=== PATIENT | male | born 1995 | race Caucasian/White ===

== ENCOUNTER 2016-12-14 06:37 | Emergency (ER) | payer OTHER ==
[2016-12-14 07:50] LABS: BASO % 0.5 % (0.0-1.0); EOS # 0.2 K/mm3 (0.0-0.50); EOS % 4.8 % (0.0-3.0); LARGE UNSTAINED CELL # 0.2 K/mm3 (0.0-0.4); LARGE UNSTAINED CELL % 3.7 % (0.0-4.0); LYMPH # 1.7 K/mm3 (1.5-6.5); LYMPH % 36.3 % (24.0-44.0); MEAN CORPUSCULAR HEMOGLOBIN 32.2 pg (27.0-33.0); MEAN CORPUSCULAR HGB CONC 34.1 g/dl (32.0-36.5); MEAN CORPUSCULAR VOLUME 94.6 fl (80.0-96.0); MONO # 0.4 K/mm3 (0.0-0.8); MONO % 7.9 % (0.0-5.0); NEUTROPHILS # 2.2 K/mm3 (1.8-7.7); NEUTROPHILS % 46.8 % (36.0-66.0); PLATELET COUNT, AUTOMATED 212 k/mm3 (150-450); RED CELL DISTRIBUTION WIDTH 12.6 % (11.5-14.5); WHITE BLOOD COUNT 4.8 K/mm3 (4.0-10.0)
[2016-12-14 08:11] LABS: ALBUMIN/GLOBULIN RATIO 1.33 (1.00-1.93); ALKALINE PHOSPHATASE 116 U/L (45-117); ALT/SGPT 27 U/L (12-78); AMYLASE 41 U/L (25-115); ANION GAP 6 MEQ/L (8-16); AST/SGOT 16 U/L (15-37); BILIRUBIN,DIRECT 0.3 MG/DL (0.0-0.2); BILIRUBIN,TOTAL 1.3 MG/DL (0.2-1.0); BLOOD UREA NITROGEN 7 MG/DL (7-18); CALCIUM LEVEL 8.5 MG/DL (8.5-10.1); CARBON DIOXIDE LEVEL 30 MEQ/L (21-32); CHLORIDE LEVEL 105 MEQ/L (98-107); CREATININE FOR GFR 1.01 MG/DL (0.70-1.30); GLOMERULAR FILTRATION RATE > 60.0 (>60); GLUCOSE, FASTING 98 MG/DL (70-105); POTASSIUM SERUM 4.1 MEQ/L (3.5-5.1); SODIUM LEVEL 141 MEQ/L (136-145)
--- NOTE | 2016-12-14 09:14 | REP ---
KUB ABDOMEN AND PELVIS: KUB film of the abdomen and pelvis is performed. There is no compelling evidence for small bowel obstruction. A single mildly dilated small bowel loop is seen in the left upper quadrant. There appears to be a small metallic BB on the skin along the left flank. Alternatively, this could be subcutaneous. IMPRESSION: No evidence of bowel obstruction. Signed by Everton Benavides MD 12/14/2016 04:54 P
--- NOTE | 2016-12-14 09:48 | REP ---
RIGHT LOWER QUADRANT ULTRASOUND: Limited right lower quadrant ultrasound performed to evaluate for possible appendicitis. The appendix could not be visualized. Trace free fluid is seen. Lymph node is seen in the right lower quadrant with a short axis dimension of 5 mm. No gross fluid collection is seen. IMPRESSION: Appendix could not be visualized. I cannot rule out appendicitis. Signed by Evertno Benavides MD 12/14/2016 04:55 P
[2016-12-14] MEDS ORDERED: MORPHINE 4 MG/ML 1ML SYRINGE As Ordered ONE (09:51)
[2016-12-14] MEDS ORDERED: GASTROGRAFIN SOLUTION 30ML (Q9963) As Ordered ONE (09:51)
[2016-12-14] MEDS ORDERED: ISOVUE-370 76% 100ML VIAL (Q9967) As Ordered ONE (11:24)
--- NOTE | 2016-12-14 12:15 | REP ---
CT ABDOMEN AND PELVIS WITH IV CONTRAST: TECHNIQUE: Axial contrast enhanced images from the lung bases to the pubic symphysis using 100 mL Isovue 370 intravenous contrast material with multiplanar reformations. The visualized lung bases are clear. The liver, gallbladder, spleen, adrenals, pancreas and kidneys unremarkable in appearance. There is no abdominal aortic aneurysm. There is no adenopathy. There is no free air or free fluid. There is no bowel wall thickening. There is no evidence of appendicitis. There is no pelvic mass. Urinary bladder is mildly distended and grossly unremarkable. There is no anterior abdominal wall defect. IMPRESSION: Negative CT abdomen and pelvis with IV contrast. No evidence for appendicitis. No free air or free fluid. Signed by Everton Benavides MD 12/14/2016 04:58 P
--- NOTE | 2016-12-14 12:26 | EDDOCDS ---
Nurse's Notes [facility] Name: Julio César Mock Age: 21 yrs Sex: Male : 1995 Arrival Date: 12/14/2016 Time: 06:37 Bed I4 / M4 Private MD: Diagnosis: Lower abdominal pain, unspecified Presentation: 12/14 06:42 Presenting complaint: Patient states: right lower quadrant pain since last night kc3 non-radiating. Pt denies n/v. Pt reports hx of inflamed appendix and reports "they just wont take it out.". Acute neurological deficits are not present. Mechanism of Injury: No Mechanism of Injury. Adult Sepsis Screening: The patient does not have new or worsening altered mentation. Patient's respiratory rate is less than 22. Systolic blood pressure is greater than 100. Patient has a qSOFA score of 0- Negative Sepsis Screen. Suicide/Homicide risk assessment- the patient denies having any suicidal and/or homicidal ideations and does not present with any other emotional, behavioral or mental health complaints. Status: The patient is an active duty director of therapy services. Transition of care: patient was not received from another setting of care. 06:42 Acuity: JEWELS Level 3 kc3 06:42 Method Of Arrival: Walkin/Carried/Asstd kc3 Triage Assessment: 06:44 General: Appears in no apparent distress, comfortable. Pain: Location: right lower kc3 quadrant Pain currently is 3 out of 10 on a pain scale. HIV screening NA for this visit Offered previously. GI: Reports lower abdominal pain, Denies nausea, vomiting. Musculoskeletal: Circulation, motion, and sensation intact. Historical: - Allergies: no known allergies; - Home Meds: 1. Tylenol 325 mg Oral tab 2 tabs every 4 hours as needed - PMHx: none; - PSHx: none; - Social history: Smoking status: Patient states was never smoker of tobacco. No barriers to communication noted, The patient speaks fluent Jamaican, Speaks appropriately for age. - Family history: Not pertinent. - : The pt / caregiver states he / she is not on anticoagulants. Home medication list is obtained from the patient. - Exposure Risk Screening:: None identified. Screenin:39 Screening information is obtained from the patient. Primary language is Jamaican. Fall jam1 risk: No risks identified. Assistance ADL's: requires no assistance with activities of daily living. Abuse/DV Screen: The patient / caregiver reports he/she is: not in a situation that causes fear, pain or injury. Nutritional screening: No deficits noted. Exposure Risk Screening: None identified. Advance Directives: Currently, there is no health care proxy. There is no active DNR order. There is no living will. 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 Advance directive information has not previously been placed in an [facility] medical record. Further advance directive information is declined. home support is adequate. Assessment: 07:38 General: Appears in no apparent distress, well developed, well nourished, well groomed, dls Behavior is cooperative. Neurological: No deficits noted. EENT: No deficits noted. Cardiovascular: No deficits noted. Respiratory: No deficits noted. GI: Abdomen is flat, Bowel sounds present X 4 quads. Abd is soft X 4 quads Reports lower abdominal pain. : No deficits noted. Derm: No deficits noted. Musculoskeletal: No deficits noted. 08:30 General: Pt resting quietly on stretcher awaiting test results.. dls 10:07 General: Pt medicated IV for abdominal pain 4/10 also drinking contrast for CT.. dls 11:38 General: Pt to CT via stretcher and returned to room IV site remains clear and patent.. [facility] Vital Signs: 06:41 BP 127 / 71; Pulse 54; Resp 18; Temp 97.2(O); Pulse Ox 99% on R/A; Weight 68.04 kg; kc3 Height 5 ft. 6 in. (167.64 cm); Pain 3/10; 10:19 BP 121 / 67; Pulse 54; Resp 18; Temp 96.7; Pulse Ox 99% ; Pain 3/10; jam1 10:20 BP 113 / 57; Pulse 77; Resp 16; jmk 12:24 BP 115 / 58; Pulse 82; Resp 16; Temp 98.0(T); jmk 06:41 Body Mass Index 24.21 (68.04 kg, 167.64 cm) [facility] Vitals: 06:41 Log In Time: December 14, 2016 at 06:41. [facility] ED Course: 06:38 Patient visited by Chrissy Bianchi, Reg. hs2 06:38 Patient moved to Waiting hs2 06:43 Triage Initiated 3 06:48 Patient moved to [facility] Wait kc3 07:07 Patient moved to I4 / M4 dls 07:11 Aki Coley PA-C is PHCP. ar2 07:11 Leo Rebollar MD is Attending Physician. ar2 07:14 Patient visited by Aki Coley PA-C. ar2 07:37 Amylase Sent. dls 07:37 Basic Metabolic Profile Sent. dls 07:37 CBC with Diff Sent. dls 07:37 Lipase Sent. dls 07:37 Liver Profile Sent. dls 07:39 Pt greeted and oriented to ED. Patient advised of names of staff involved in care, jam1 location of call baeza, wait times and NPO status. Patient has correct armband on for positive identification. Placed in gown. Bed in low position. Call light in reach. Side rails up X 1. Door closed. 07:39 Inserted saline lock: 20 gauge in right antecubital area and blood collected. The dls patient tolerated the procedure well. No procedures done that require assistance. Labs drawn. (by ED staff). 08:16 [facility] Payment Agreement was scanned into [employer] and attached to record. mm15 08:25 Patient visited by Diana Reyes RN. dls 09:35 KUB Returned. EDMS 09:57 Patient has correct armband on for positive identification. Bed in low position. Call jam1 light in reach. Side rails up X 1. Door closed. 10:04 Pelvis, limited US Returned. EDMS 10:20 Patient visited by Diana Reyes, [place]. dls 11:24 Patient visited by Diana Reyes, [place]. dls 11:35 Patient visited by Rose Mary Spear, IRIS. jam1 12:04 Teresita Moran [facility] is Referral Physician. ar2 12:24 The patient / caregiver is instructed regarding the plan of care and ED course. jmk 12:24 Discontinued lock intact, bleeding controlled, pressure dressing applied, No jmk redness/swelling at site. Administered Medications: 09:56 Drug: morphine 4 mg [morphine 4 mg/mL intravenous cartridge (1 mL)] Route: IVP; Site: dls right antecubital; 10:05 Drug: Diatrizoate Meglumine & Sodium 10 ml [diatrizoate meglumine and diat.sodium 66 dls %-10 % oral solution (10 mL)] Route: PO; 10:28 Drug: Diatrizoate Meglumine & Sodium 10 ml [diatrizoate meglumine and diat.sodium 66 dls %-10 % oral solution (10 mL)] Route: PO; Order Results: Lab Order: Amylase; SPEC'M 12/14/16 07:33 Test: AMYLASE; Value: 41; Range: 25-115; Units: U/L; Status: F Lab Order: Basic Metabolic Profile; SPEC'12/14/16 07:33 Test: GLUCOSE, FASTING; Value: 98; Range: 70-105; Units: MG/DL; Status: F Test: BLOOD UREA NITROGEN; Value: 7; Range: 7-18; Units: MG/DL; Status: F Test: CREATININE FOR GFR; Value: 1.01; Range: 0.70-1.30; Units: MG/DL; Status: F Test: GLOMERULAR FILTRATION RATE; Value: > 60.0; Range: >60; Status: F Test: SODIUM LEVEL; Value: 141; Range: 136-145; Units: MEQ/L; Status: F Test: POTASSIUM SERUM; Value: 4.1; Range: 3.5-5.1; Units: MEQ/L; Status: F Test: CHLORIDE LEVEL; Value: 105; Range: 98-107; Units: MEQ/L; Status: F Test: CARBON DIOXIDE LEVEL; Value: 30; Range: 21-32; Units: MEQ/L; Status: F Test: ANION GAP; Value: 6; Range: 8-16; Abnormal: Below low normal; Units: MEQ/L; Status: F Test: CALCIUM LEVEL; Value: 8.5; Range: 8.5-10.1; Units: MG/DL; Status: F Test Note: ; Units are mL/min/1.73 m2 Chronic Kidney Disease Staging per NKF: Stage I & II GFR >=60 Normal to Mildly Decreased Stage III GFR 30-59 Moderately Decreased Stage IV GFR 15-29 Severely Decreased Stage V GFR <15 Very Little GFR Left ESRD GFR <15 on HOCKEY INSTRUCTOR Lab Order: CBC with Diff; SPEC'12/14/16 07:33 Test: WHITE BLOOD COUNT; Value: 4.8; Range: 4.0-10.0; Units: K/mm3; Status: F Test: RED BLOOD COUNT; Value: 4.78; Range: 4.30-6.10; Units: M/mm3; Status: F Test: HEMOGLOBIN; Value: 15.4; Range: 14.0-18.0; Units: g/dl; Status: F Test: HEMATOCRIT; Value: 45.3; Range: 42.0-52.0; Units: %; Status: F Test: MEAN CORPUSCULAR VOLUME; Value: 94.6; Range: 80.0-96.0; Units: fl; Status: F Test: MEAN CORPUSCULAR HEMOGLOBIN; Value: 32.2; Range: 27.0-33.0; Units: pg; Status: F Test: MEAN CORPUSCULAR HGB CONC; Value: 34.1; Range: 32.0-36.5; Units: g/dl; Status: F Test: RED CELL DISTRIBUTION WIDTH; Value: 12.6; Range: 11.5-14.5; Units: %; Status: F Test: PLATELET COUNT, AUTOMATED; Value: 212; Range: 150-450; Units: k/mm3; Status: F Test: NEUTROPHILS %; Value: 46.8; Range: 36.0-66.0; Units: %; Status: F Test: LYMPH %; Value: 36.3; Range: 24.0-44.0; Units: %; Status: F Test: MONO %; Value: 7.9; Range: 0.0-5.0; Abnormal: Above high normal; Units: %; Status: F Test: EOS %; Value: 4.8; Range: 0.0-3.0; Abnormal: Above high normal; Units: %; Status: F Test: BASO %; Value: 0.5; Range: 0.0-1.0; Units: %; Status: F Test: LARGE UNSTAINED CELL %; Value: 3.7; Range: 0.0-4.0; Units: %; Status: F Test: NEUTROPHILS #; Value: 2.2; Range: 1.8-7.7; Units: K/mm3; Status: F Test: LYMPH #; Value: 1.7; Range: 1.5-6.5; Units: K/mm3; Status: F Test: MONO #; Value: 0.4; Range: 0.0-0.8; Units: K/mm3; Status: F Test: EOS #; Value: 0.2; Range: 0.0-0.50; Units: K/mm3; Status: F Test: BASO #; Value: 0.0; Range: 0.0-0.2; Units: K/mm3; Status: F Test: LARGE UNSTAINED CELL #; Value: 0.2; Range: 0.0-0.4; Units: K/mm3; Status: F Lab Order: Lipase; SPEC'M 12/14/16 07:33 Test: LIPASE; Value: 90; Range: 73-393; Units: U/L; Status: F Lab Order: Liver Profile; SPEC'M 12/14/16 07:33 Test: AST/SGOT; Value: 16; Range: 15-37; Units: U/L; Status: F Test: ALT/SGPT; Value: 27; Range: 12-78; Units: U/L; Status: F Test: ALKALINE PHOSPHATASE; Value: 116; Range: 45-117; Units: U/L; Status: F Test: BILIRUBIN,TOTAL; Value: 1.3; Range: 0.2-1.0; Abnormal: Above high normal; Units: MG/DL; Status: F Test: BILIRUBIN,DIRECT; Value: 0.3; Range: 0.0-0.2; Abnormal: Above high normal; Units: MG/DL; Status: F Test: TOTAL PROTEIN; Value: 7.0; Range: 6.4-8.2; Units: GM/DL; Status: F Test: ALBUMIN; Value: 4.0; Range: 3.2-5.2; Units: GM/DL; Status: F Test: ALBUMIN/GLOBULIN RATIO; Value: 1.33; Range: 1.00-1.93; Status: F Radiology Order: KUB Test: KUB REASON FOR EXAMINATION: RLQ pain; KUB ABDOMEN AND PELVIS:; ; KUB film of the abdomen and pelvis is performed. There is no compelling evidence; for small bowel obstruction. A single mildly dilated small bowel loop is seen in; the left upper quadrant. There appears to be a small metallic BB on the skin; along the left flank. Alternatively, this could be subcutaneous.; ; IMPRESSION:; No evidence of bowel obstruction.; ; Unreviewed; Radiology Order: Pelvis, limited US Test: Pelvis, limited US REASON FOR EXAMINATION: RLQ pain;Appendicitis/RLQ Pain; RIGHT LOWER QUADRANT ULTRASOUND:; ; Limited right lower quadrant ultrasound performed to evaluate for possible; appendicitis. The appendix could not be visualized. Trace free fluid is seen.; Lymph node is seen in the right lower quadrant with a short axis dimension of 5; mm. No gross fluid collection is seen.; ; IMPRESSION:; Appendix could not be visualized. I cannot rule out appendicitis.; ; Unreviewed; Outcome: 12:05 Discharge ordered by Provider. ar2 12:23 Discharge Assessment: Patient awake, alert and oriented x 3. No cognitive and/or jmk functional deficits noted. Patient verbalized understanding of disposition instructions. patient administered narcotics - yes. Pt provided with safe discharge. The following High Risk Discharge criteria are identified: None. Discharged to home ambulatory. Condition: good. Discharge instructions given to patient, Instructed on discharge instructions, follow up and referral plans. medication usage, no driving heavy equipment, Demonstrated understanding of instructions, medications, Pt was receptive of discharge instructions/ teaching. Prescriptions given X 1. CT Study completed. Property :Personal belongings accompany Pt. 12:26 Patient left the ED. maurilio Signatures: Dispatcher [employer] EDMS Augustin Yusuf,RN RN Diana Lua RN RN dls Rose Mary Spear, HOT BILLET SHEAR OPERATOR HOT BILLET SHEAR OPERATOR jam1 Aki Coley PA-C PA-C ar2 Gabby Sanders mm15 Silva BlackRN RN kc3 Chrissy Bianchi, Reg Reg hs2 Corrections: (The following items were deleted from the chart) 10:07 10:01 General: Pt resting quietly. dls dls MTDD
--- NOTE | 2016-12-14 12:26 | EDDOCDS ---
Physician Documentation [facility] Name: Julio César Mock Age: 21 yrs Sex: Male : 1995 Arrival Date: 12/14/2016 Time: 06:37 Bed I4 / M4 Private MD: Disposition: 12/14/16 12:05 Discharged to Home/Self Care. Impression: Lower abdominal pain, unspecified. - Condition is Stable. - Discharge Instructions: Abdominal Pain, Adult. - Prescriptions for Miralax 17 gram/dose - take 17 gram by ORAL route once daily As needed dilute in 8 ounces of water or juice; 1 bottle. - Medication Reconciliation, Local Pharmacy Hours form. - Follow up: Teresita Moran [facility]; When: Call to arrange an appointment; Reason: Recheck today's complaints. - Problem is new. - Symptoms have improved. Historical: - Allergies: no known allergies; - Home Meds: 1. Tylenol 325 mg Oral tab 2 tabs every 4 hours as needed - PMHx: none; - PSHx: none; - Social history: Smoking status: Patient states was never smoker of tobacco. No barriers to communication noted, The patient speaks fluent Kenyan, Speaks appropriately for age. - Family history: Not pertinent. - : The pt / caregiver states he / she is not on anticoagulants. Home medication list is obtained from the patient. - Exposure Risk Screening:: None identified. Vital Signs: 12/14 06:41 BP 127 / 71; Pulse 54; Resp 18; Temp 97.2(O); Pulse Ox 99% on R/A; Weight 68.04 kg / kc3 150 lbs; Height 5 ft. 6 in. (167.64 cm); Pain 3/10; 10:19 BP 121 / 67; Pulse 54; Resp 18; Temp 96.7; Pulse Ox 99% ; Pain 3/10; jam1 10:20 BP 113 / 57; Pulse 77; Resp 16; jmk 12:24 BP 115 / 58; Pulse 82; Resp 16; Temp 98.0(T); jmk 06:41 Body Mass Index 24.21 (68.04 kg, 167.64 cm) kc3 MDM: 07:20 IV Saline Lock ordered. ar2 07:20 Undress patient appropriately for examination ordered. ar2 07:22 Amylase Ordered. EDMS 07:22 Basic Metabolic Profile Ordered. EDMS 07:22 CBC with Diff Ordered. EDMS 07:22 Lipase Ordered. EDMS 07:22 Liver Profile Ordered. EDMS 07:23 NOTHING BY MOUTH+DIET ordered. EDMS 07:52 Financial registration complete. mm15 08:16 [facility] Payment Agreement was scanned into [employer] and attached to record. mm15 08:16 Basic Metabolic Profile Reviewed. ar2 08:16 CBC with Diff Reviewed. ar2 08:16 Liver Profile Reviewed. ar2 08:16 Amylase Reviewed. ar2 08:16 Lipase Reviewed. ar2 08:33 KUB Ordered. EDMS 08:53 Pelvis, limited US Ordered. EDMS 09:48 morphine 4 mg IVP once ordered. ar2 09:48 CT ABD & PELVIS: IV and Oral Contrast Ordered. EDMS 09:57 Diatrizoate Meglumine & Sodium Liquid 10 ml PO once; mix in 290cc of water ordered. dls 09:58 Diatrizoate Meglumine & Sodium Liquid 10 ml PO once; mix in 290cc of water ordered. dls Administered Medications: 09:56 Drug: morphine 4 mg [morphine 4 mg/mL intravenous cartridge (1 mL)] Route: IVP; Site: dls right antecubital; 10:05 Drug: Diatrizoate Meglumine & Sodium 10 ml [diatrizoate meglumine and diat.sodium 66 dls %-10 % oral solution (10 mL)] Route: PO; 10:28 Drug: Diatrizoate Meglumine & Sodium 10 ml [diatrizoate meglumine and diat.sodium 66 dls %-10 % oral solution (10 mL)] Route: PO; Signatures: Dispatcher [employer] EDMS Augustin Yusuf,RN RN Diana Lua RN RN dls Aki Coley PA-Annabel PAShay ar2 Gabby Sanders mm15 Silva Black,RN RN kc3 The chart was reviewed and I authenticate all verbal orders and agree with the evaluation and treatment provided.Corrections: (The following items were deleted from the chart) 08:53 08:26 Abdomen, limited+US ordered. EDMS EDMS Attachments: 08:16 [facility] [place] mm15 MTDD
--- NOTE | 2016-12-16 13:27 | EDDOCDS ---
Physician Documentation [facility] Name: Julio César Mock Age: 21 yrs Sex: Male : 1995 Arrival Date: 12/14/2016 Time: 06:37 Bed I4 / M4 Private MD: Disposition: 12/14/16 12:05 Discharged to Home/Self Care. Impression: Lower abdominal pain, unspecified. - Condition is Stable. - Discharge Instructions: Abdominal Pain, Adult. - Prescriptions for Miralax 17 gram/dose - take 17 gram by ORAL route once daily As needed dilute in 8 ounces of water or juice; 1 bottle. - Medication Reconciliation, Local Pharmacy Hours form. - Follow up: Teresita Moran [facility]; When: Call to arrange an appointment; Reason: Recheck today's complaints. - Problem is new. - Symptoms have improved. Historical: - Allergies: no known allergies; - Home Meds: 1. Tylenol 325 mg Oral tab 2 tabs every 4 hours as needed - PMHx: none; - PSHx: none; - Social history: Smoking status: Patient states was never smoker of tobacco. No barriers to communication noted, The patient speaks fluent Brazilian, Speaks appropriately for age. - Family history: Not pertinent. - : The pt / caregiver states he / she is not on anticoagulants. Home medication list is obtained from the patient. - Exposure Risk Screening:: None identified. Vital Signs: 12/14 06:41 BP 127 / 71; Pulse 54; Resp 18; Temp 97.2(O); Pulse Ox 99% on R/A; Weight 68.04 kg / kc3 150 lbs; Height 5 ft. 6 in. (167.64 cm); Pain 3/10; 10:19 BP 121 / 67; Pulse 54; Resp 18; Temp 96.7; Pulse Ox 99% ; Pain 3/10; jam1 10:20 BP 113 / 57; Pulse 77; Resp 16; jmk 12:24 BP 115 / 58; Pulse 82; Resp 16; Temp 98.0(T); jmk 06:41 Body Mass Index 24.21 (68.04 kg, 167.64 cm) kc3 MDM: 07:20 IV Saline Lock ordered. ar2 07:20 Undress patient appropriately for examination ordered. ar2 07:22 Amylase Ordered. EDMS 07:22 Basic Metabolic Profile Ordered. EDMS 07:22 CBC with Diff Ordered. EDMS 07:22 Lipase Ordered. EDMS 07:22 Liver Profile Ordered. EDMS 07:23 NOTHING BY MOUTH+DIET ordered. EDMS 07:52 Financial registration complete. mm15 08:16 [facility] Payment Agreement was scanned into [employer] and attached to record. mm15 08:16 Basic Metabolic Profile Reviewed. ar2 08:16 CBC with Diff Reviewed. ar2 08:16 Liver Profile Reviewed. ar2 08:16 Amylase Reviewed. ar2 08:16 Lipase Reviewed. ar2 08:33 KUB Ordered. EDMS 08:53 Pelvis, limited US Ordered. EDMS 09:48 morphine 4 mg IVP once ordered. ar2 09:48 CT ABD & PELVIS: IV and Oral Contrast Ordered. EDMS 09:57 Diatrizoate Meglumine & Sodium Liquid 10 ml PO once; mix in 290cc of water ordered. dls 09:58 Diatrizoate Meglumine & Sodium Liquid 10 ml PO once; mix in 290cc of water ordered. dls Administered Medications: 09:56 Drug: morphine 4 mg [morphine 4 mg/mL intravenous cartridge (1 mL)] Route: IVP; Site: dls right antecubital; 10:05 Drug: Diatrizoate Meglumine & Sodium 10 ml [diatrizoate meglumine and diat.sodium 66 dls %-10 % oral solution (10 mL)] Route: PO; 10:28 Drug: Diatrizoate Meglumine & Sodium 10 ml [diatrizoate meglumine and diat.sodium 66 dls %-10 % oral solution (10 mL)] Route: PO; Signatures: Dispatcher [employer] EDMS Augustin Yusuf,RN RN Diana Lua RN RN dls Aki Coley PA-Annabel PAShay ar2 Gabby Sanders mm15 Silva Black,RN RN kc3 The chart was reviewed and I authenticate all verbal orders and agree with the evaluation and treatment provided.Corrections: (The following items were deleted from the chart) 08:53 08:26 Abdomen, limited+US ordered. EDMS EDMS Attachments: 08:16 [facility] Payment Agreement mm15 Chart Complete MTDD
--- NOTE | 2016-12-16 13:27 | EDDOCDS ---
Nurse's Notes [facility], [place] Name: Julio César Mock Age: 21 yrs Sex: Male : 1995 Arrival Date: 12/14/2016 Time: 06:37 Bed I4 / M4 Private MD: Diagnosis: Lower abdominal pain, unspecified Presentation: 12/14 06:42 Presenting complaint: Patient states: right lower quadrant pain since last night kc3 non-radiating. Pt denies n/v. Pt reports hx of inflamed appendix and reports "they just wont take it out.". Acute neurological deficits are not present. Mechanism of Injury: No Mechanism of Injury. Adult Sepsis Screening: The patient does not have new or worsening altered mentation. Patient's respiratory rate is less than 22. Systolic blood pressure is greater than 100. Patient has a qSOFA score of 0- Negative Sepsis Screen. Suicide/Homicide risk assessment- the patient denies having any suicidal and/or homicidal ideations and does not present with any other emotional, behavioral or mental health complaints. Status: The patient is an active duty student services coordinator. Transition of care: patient was not received from another setting of care. 06:42 Acuity: JEWELS Level 3 kc3 06:42 Method Of Arrival: Walkin/Carried/Asstd kc3 Triage Assessment: 06:44 General: Appears in no apparent distress, comfortable. Pain: Location: right lower kc3 quadrant Pain currently is 3 out of 10 on a pain scale. HIV screening NA for this visit Offered previously. GI: Reports lower abdominal pain, Denies nausea, vomiting. Musculoskeletal: Circulation, motion, and sensation intact. Historical: - Allergies: no known allergies; - Home Meds: 1. Tylenol 325 mg Oral tab 2 tabs every 4 hours as needed - PMHx: none; - PSHx: none; - Social history: Smoking status: Patient states was never smoker of tobacco. No barriers to communication noted, The patient speaks fluent Cape Verdean, Speaks appropriately for age. - Family history: Not pertinent. - : The pt / caregiver states he / she is not on anticoagulants. Home medication list is obtained from the patient. - Exposure Risk Screening:: None identified. Screenin:39 Screening information is obtained from the patient. Primary language is Cape Verdean. Fall jam1 risk: No risks identified. Assistance ADL's: requires no assistance with activities of daily living. Abuse/DV Screen: The patient / caregiver reports he/she is: not in a situation that causes fear, pain or injury. Nutritional screening: No deficits noted. Exposure Risk Screening: None identified. Advance Directives: Currently, there is no health care proxy. There is no active DNR order. There is no living will. There is no Power of Bulk Cooler Installer. Advance directive information has not previously been placed in an [facility] medical record. Further advance directive information is declined. home support is adequate. Assessment: 07:38 General: Appears in no apparent distress, well developed, well nourished, well groomed, dls Behavior is cooperative. Neurological: No deficits noted. EENT: No deficits noted. Cardiovascular: No deficits noted. Respiratory: No deficits noted. GI: Abdomen is flat, Bowel sounds present X 4 quads. Abd is soft X 4 quads Reports lower abdominal pain. : No deficits noted. Derm: No deficits noted. Musculoskeletal: No deficits noted. 08:30 General: Pt resting quietly on stretcher awaiting test results.. dls 10:07 General: Pt medicated IV for abdominal pain 4/10 also drinking contrast for CT.. dls 11:38 General: Pt to CT via stretcher and returned to room IV site remains clear and patent.. [facility] Vital Signs: 06:41 BP 127 / 71; Pulse 54; Resp 18; Temp 97.2(O); Pulse Ox 99% on R/A; Weight 68.04 kg; kc3 Height 5 ft. 6 in. (167.64 cm); Pain 3/10; 10:19 BP 121 / 67; Pulse 54; Resp 18; Temp 96.7; Pulse Ox 99% ; Pain 3/10; jam1 10:20 BP 113 / 57; Pulse 77; Resp 16; jmk 12:24 BP 115 / 58; Pulse 82; Resp 16; Temp 98.0(T); jmk 06:41 Body Mass Index 24.21 (68.04 kg, 167.64 cm) [facility] Vitals: 06:41 Log In Time: December 14, 2016 at 06:41. [facility] ED Course: 06:38 Patient visited by Chrissy Bianchi, Reg. hs2 06:38 Patient moved to Waiting hs2 06:43 Triage Initiated 3 06:48 Patient moved to [facility] Wait kc3 07:07 Patient moved to I4 / M4 dls 07:11 Aki Coley PA-C is PHCP. ar2 07:11 Leo Rebollar MD is Attending Physician. ar2 07:14 Patient visited by Aki Coley PA-C. ar2 07:37 Amylase Sent. dls 07:37 Basic Metabolic Profile Sent. dls 07:37 CBC with Diff Sent. dls 07:37 Lipase Sent. dls 07:37 Liver Profile Sent. dls 07:39 Pt greeted and oriented to ED. Patient advised of names of staff involved in care, jam1 location of call baeza, wait times and NPO status. Patient has correct armband on for positive identification. Placed in gown. Bed in low position. Call light in reach. Side rails up X 1. Door closed. 07:39 Inserted saline lock: 20 gauge in right antecubital area and blood collected. The dls patient tolerated the procedure well. No procedures done that require assistance. Labs drawn. (by ED staff). 08:16 [facility] Payment Agreement was scanned into [employer] and attached to record. mm15 08:25 Patient visited by Diana Reyes RN. dls 09:35 KUB Returned. EDMS 09:57 Patient has correct armband on for positive identification. Bed in low position. Call jam1 light in reach. Side rails up X 1. Door closed. 10:04 Pelvis, limited US Returned. EDMS 10:20 Patient visited by Diana Reyes, [place]. dls 11:24 Patient visited by Diana Reyes, [place]. dls 11:35 Patient visited by Rose Mary Spear, IRIS. jam1 12:04 Teresita Moran [facility] is Referral Physician. ar2 12:24 The patient / caregiver is instructed regarding the plan of care and ED course. jmk 12:24 Discontinued lock intact, bleeding controlled, pressure dressing applied, No jmk redness/swelling at site. 12:40 CT ABD & PELVIS: IV and Oral Contrast Returned. EDMS Administered Medications: 09:56 Drug: morphine 4 mg [morphine 4 mg/mL intravenous cartridge (1 mL)] Route: IVP; Site: dls right antecubital; 10:05 Drug: Diatrizoate Meglumine & Sodium 10 ml [diatrizoate meglumine and diat.sodium 66 dls %-10 % oral solution (10 mL)] Route: PO; 10:28 Drug: Diatrizoate Meglumine & Sodium 10 ml [diatrizoate meglumine and diat.sodium 66 dls %-10 % oral solution (10 mL)] Route: PO; Order Results: Lab Order: Amylase; SPEC'12/14/16 07:33 Test: AMYLASE; Value: 41; Range: 25-115; Units: U/L; Status: F Lab Order: Basic Metabolic Profile; SPEC12/14/16 07:33 Test: GLUCOSE, FASTING; Value: 98; Range: 70-105; Units: MG/DL; Status: F Test: BLOOD UREA NITROGEN; Value: 7; Range: 7-18; Units: MG/DL; Status: F Test: CREATININE FOR GFR; Value: 1.01; Range: 0.70-1.30; Units: MG/DL; Status: F Test: GLOMERULAR FILTRATION RATE; Value: > 60.0; Range: >60; Status: F Test: SODIUM LEVEL; Value: 141; Range: 136-145; Units: MEQ/L; Status: F Test: POTASSIUM SERUM; Value: 4.1; Range: 3.5-5.1; Units: MEQ/L; Status: F Test: CHLORIDE LEVEL; Value: 105; Range: 98-107; Units: MEQ/L; Status: F Test: CARBON DIOXIDE LEVEL; Value: 30; Range: 21-32; Units: MEQ/L; Status: F Test: ANION GAP; Value: 6; Range: 8-16; Abnormal: Below low normal; Units: MEQ/L; Status: F Test: CALCIUM LEVEL; Value: 8.5; Range: 8.5-10.1; Units: MG/DL; Status: F Test Note: ; Units are mL/min/1.73 m2 Chronic Kidney Disease Staging per NKF: Stage I & II GFR >=60 Normal to Mildly Decreased Stage III GFR 30-59 Moderately Decreased Stage IV GFR 15-29 Severely Decreased Stage V GFR <15 Very Little GFR Left ESRD GFR <15 on BAR TACKER Lab Order: CBC with Diff; SPEC12/14/16 07:33 Test: WHITE BLOOD COUNT; Value: 4.8; Range: 4.0-10.0; Units: K/mm3; Status: F Test: RED BLOOD COUNT; Value: 4.78; Range: 4.30-6.10; Units: M/mm3; Status: F Test: HEMOGLOBIN; Value: 15.4; Range: 14.0-18.0; Units: g/dl; Status: F Test: HEMATOCRIT; Value: 45.3; Range: 42.0-52.0; Units: %; Status: F Test: MEAN CORPUSCULAR VOLUME; Value: 94.6; Range: 80.0-96.0; Units: fl; Status: F Test: MEAN CORPUSCULAR HEMOGLOBIN; Value: 32.2; Range: 27.0-33.0; Units: pg; Status: F Test: MEAN CORPUSCULAR HGB CONC; Value: 34.1; Range: 32.0-36.5; Units: g/dl; Status: F Test: RED CELL DISTRIBUTION WIDTH; Value: 12.6; Range: 11.5-14.5; Units: %; Status: F Test: PLATELET COUNT, AUTOMATED; Value: 212; Range: 150-450; Units: k/mm3; Status: F Test: NEUTROPHILS %; Value: 46.8; Range: 36.0-66.0; Units: %; Status: F Test: LYMPH %; Value: 36.3; Range: 24.0-44.0; Units: %; Status: F Test: MONO %; Value: 7.9; Range: 0.0-5.0; Abnormal: Above high normal; Units: %; Status: F Test: EOS %; Value: 4.8; Range: 0.0-3.0; Abnormal: Above high normal; Units: %; Status: F Test: BASO %; Value: 0.5; Range: 0.0-1.0; Units: %; Status: F Test: LARGE UNSTAINED CELL %; Value: 3.7; Range: 0.0-4.0; Units: %; Status: F Test: NEUTROPHILS #; Value: 2.2; Range: 1.8-7.7; Units: K/mm3; Status: F Test: LYMPH #; Value: 1.7; Range: 1.5-6.5; Units: K/mm3; Status: F Test: MONO #; Value: 0.4; Range: 0.0-0.8; Units: K/mm3; Status: F Test: EOS #; Value: 0.2; Range: 0.0-0.50; Units: K/mm3; Status: F Test: BASO #; Value: 0.0; Range: 0.0-0.2; Units: K/mm3; Status: F Test: LARGE UNSTAINED CELL #; Value: 0.2; Range: 0.0-0.4; Units: K/mm3; Status: F Lab Order: Lipase; SPEC'M 12/14/16 07:33 Test: LIPASE; Value: 90; Range: 73-393; Units: U/L; Status: F Lab Order: Liver Profile; SPEC'M 12/14/16 07:33 Test: AST/SGOT; Value: 16; Range: 15-37; Units: U/L; Status: F Test: ALT/SGPT; Value: 27; Range: 12-78; Units: U/L; Status: F Test: ALKALINE PHOSPHATASE; Value: 116; Range: 45-117; Units: U/L; Status: F Test: BILIRUBIN,TOTAL; Value: 1.3; Range: 0.2-1.0; Abnormal: Above high normal; Units: MG/DL; Status: F Test: BILIRUBIN,DIRECT; Value: 0.3; Range: 0.0-0.2; Abnormal: Above high normal; Units: MG/DL; Status: F Test: TOTAL PROTEIN; Value: 7.0; Range: 6.4-8.2; Units: GM/DL; Status: F Test: ALBUMIN; Value: 4.0; Range: 3.2-5.2; Units: GM/DL; Status: F Test: ALBUMIN/GLOBULIN RATIO; Value: 1.33; Range: 1.00-1.93; Status: F Radiology Order: KUB Test: KUB REASON FOR EXAMINATION: RLQ pain; KUB ABDOMEN AND PELVIS:; ; KUB film of the abdomen and pelvis is performed. There is no compelling evidence; for small bowel obstruction. A single mildly dilated small bowel loop is seen in; the left upper quadrant. There appears to be a small metallic BB on the skin; along the left flank. Alternatively, this could be subcutaneous.; ; IMPRESSION:; ; No evidence of bowel obstruction.; ; ; Signed by; Everton Benavides MD 12/14/2016 04:54 P; Radiology Order: Pelvis, limited US Test: Pelvis, limited US REASON FOR EXAMINATION: RLQ pain;Appendicitis/RLQ Pain; RIGHT LOWER QUADRANT ULTRASOUND:; ; Limited right lower quadrant ultrasound performed to evaluate for possible; appendicitis. The appendix could not be visualized. Trace free fluid is seen.; Lymph node is seen in the right lower quadrant with a short axis dimension of 5; mm. No gross fluid collection is seen.; ; IMPRESSION:; ; Appendix could not be visualized. I cannot rule out appendicitis.; ; ; Signed by; Everton Benavides MD 12/14/2016 04:55 P; Radiology Order: CT ABD & PELVIS: IV and Oral Contrast Test: CT ABD & PELVIS: IV and Oral Contrast REASON FOR EXAMINATION: Appendicitis; CT ABDOMEN AND PELVIS WITH IV CONTRAST:; ; TECHNIQUE: Axial contrast enhanced images from the lung bases to the pubic; symphysis using 100 mL Isovue 370 intravenous contrast material with multiplanar; reformations.; ; The visualized lung bases are clear. The liver, gallbladder, spleen, adrenals,; pancreas and kidneys unremarkable in appearance. There is no abdominal aortic; aneurysm. There is no adenopathy. There is no free air or free fluid. There is; no bowel wall thickening. There is no evidence of appendicitis. There is no; pelvic mass. Urinary bladder is mildly distended and grossly unremarkable.; There is no anterior abdominal wall defect.; ; IMPRESSION:; ; Negative CT abdomen and pelvis with IV contrast. No evidence for appendicitis.; No free air or free fluid.; ; ; Signed by; Everton Benavides MD 12/14/2016 04:58 P; Outcome: 12:05 Discharge ordered by Provider. ar2 12:23 Discharge Assessment: Patient awake, alert and oriented x 3. No cognitive and/or jmk functional deficits noted. Patient verbalized understanding of disposition instructions. patient administered narcotics - yes. Pt provided with safe discharge. The following High Risk Discharge criteria are identified: None. Discharged to home ambulatory. Condition: good. Discharge instructions given to patient, Instructed on discharge instructions, follow up and referral plans. medication usage, no driving heavy equipment, Demonstrated understanding of instructions, medications, Pt was receptive of discharge instructions/ teaching. Prescriptions given X 1. CT Study completed. Property :Personal belongings accompany Pt. 12:26 Patient left the ED. jmk Signatures: Dispatcher [employer] EDMS Augustin Yusuf,RN RN Diana Lau RN RN dls SpearRose Mary, [employer] TILE FLOOR LAYER ASPHALT TILE FLOOR LAYER jam1 Aki Coley PA-C PA-C ar2 Gabby Sanders mm15 Silva Black RN RN kc3 Chrissy Bianchi, Reg Reg hs2 Corrections: (The following items were deleted from the chart) 10:07 10:01 General: Pt resting quietly. dls dls Chart Complete MTDD
--- NOTE | 2016-12-16 13:27 | EDDOCDS ---
Physician Documentation [facility] Name: Julio César Mock Age: 21 yrs Sex: Male : 1995 Arrival Date: 12/14/2016 Time: 06:37 Bed I4 / M4 Private MD: Disposition: 12/14/16 12:05 Discharged to Home/Self Care. Impression: Lower abdominal pain, unspecified. - Condition is Stable. - Discharge Instructions: Abdominal Pain, Adult. - Prescriptions for Miralax 17 gram/dose - take 17 gram by ORAL route once daily As needed dilute in 8 ounces of water or juice; 1 bottle. - Medication Reconciliation, Local Pharmacy Hours form. - Follow up: Teresita Moran [facility]; When: Call to arrange an appointment; Reason: Recheck today's complaints. - Problem is new. - Symptoms have improved. Historical: - Allergies: no known allergies; - Home Meds: 1. Tylenol 325 mg Oral tab 2 tabs every 4 hours as needed - PMHx: none; - PSHx: none; - Social history: Smoking status: Patient states was never smoker of tobacco. No barriers to communication noted, The patient speaks fluent Chadian, Speaks appropriately for age. - Family history: Not pertinent. - : The pt / caregiver states he / she is not on anticoagulants. Home medication list is obtained from the patient. - Exposure Risk Screening:: None identified. Vital Signs: 12/14 06:41 BP 127 / 71; Pulse 54; Resp 18; Temp 97.2(O); Pulse Ox 99% on R/A; Weight 68.04 kg / kc3 150 lbs; Height 5 ft. 6 in. (167.64 cm); Pain 3/10; 10:19 BP 121 / 67; Pulse 54; Resp 18; Temp 96.7; Pulse Ox 99% ; Pain 3/10; jam1 10:20 BP 113 / 57; Pulse 77; Resp 16; jmk 12:24 BP 115 / 58; Pulse 82; Resp 16; Temp 98.0(T); jmk 06:41 Body Mass Index 24.21 (68.04 kg, 167.64 cm) kc3 MDM: 07:20 IV Saline Lock ordered. ar2 07:20 Undress patient appropriately for examination ordered. ar2 07:22 Amylase Ordered. EDMS 07:22 Basic Metabolic Profile Ordered. EDMS 07:22 CBC with Diff Ordered. EDMS 07:22 Lipase Ordered. EDMS 07:22 Liver Profile Ordered. EDMS 07:23 NOTHING BY MOUTH+DIET ordered. EDMS 07:52 Financial registration complete. mm15 08:16 [facility] Payment Agreement was scanned into [employer] and attached to record. mm15 08:16 Basic Metabolic Profile Reviewed. ar2 08:16 CBC with Diff Reviewed. ar2 08:16 Liver Profile Reviewed. ar2 08:16 Amylase Reviewed. ar2 08:16 Lipase Reviewed. ar2 08:33 KUB Ordered. EDMS 08:53 Pelvis, limited US Ordered. EDMS 09:48 morphine 4 mg IVP once ordered. ar2 09:48 CT ABD & PELVIS: IV and Oral Contrast Ordered. EDMS 09:57 Diatrizoate Meglumine & Sodium Liquid 10 ml PO once; mix in 290cc of water ordered. dls 09:58 Diatrizoate Meglumine & Sodium Liquid 10 ml PO once; mix in 290cc of water ordered. dls Administered Medications: 09:56 Drug: morphine 4 mg [morphine 4 mg/mL intravenous cartridge (1 mL)] Route: IVP; Site: dls right antecubital; 10:05 Drug: Diatrizoate Meglumine & Sodium 10 ml [diatrizoate meglumine and diat.sodium 66 dls %-10 % oral solution (10 mL)] Route: PO; 10:28 Drug: Diatrizoate Meglumine & Sodium 10 ml [diatrizoate meglumine and diat.sodium 66 dls %-10 % oral solution (10 mL)] Route: PO; Signatures: Dispatcher [employer] EDMS Augustin Yusuf,RN RN Diana Lua RN RN dls Aki Coley PA-Annabel PAShay ar2 Gabby Sanders mm15 Silva Black,RN RN kc3 The chart was reviewed and I authenticate all verbal orders and agree with the evaluation and treatment provided.Corrections: (The following items were deleted from the chart) 08:53 08:26 Abdomen, limited+US ordered. EDMS EDMS Attachments: 08:16 [facility] Payment Agreement mm15 Chart Complete MTDD
== END 2016-12-14 12:26 | disposition home or self-care (01) ==
LOC: M ED 06:37
DX: R10.31 Right lower quadrant pain (principal)
CPT/HCPCS: 36415; 74000; 74177; 76857; 80048; 80076; 82150; 83690; 85025; 96374; 99284; Q9963; Q9967

== ENCOUNTER 2017-04-27 04:07 | Emergency (ER) | payer OTHER ==
[2017-04-27] MEDS ORDERED: PANTOPRAZOLE 40MG INJ (PROTONIX) (C9113) IV ONE (06:15)
[2017-04-27] MEDS ORDERED: NS 1,000 ML IV ONE (06:15)
[2017-04-27] MEDS ORDERED: KETOROLAC 30 MG/ML VIAL (J1885) IV ONE (06:15)
[2017-04-27] MEDS ORDERED: ONDANSETRON 4MG/2ML VIAL (J2405) IV ONE (06:15)
[2017-04-27 06:34] LABS: BASO % 0.3 % (0.0-1.0); EOS # 0.2 K/mm3 (0.0-0.50); EOS % 1.7 % (0.0-3.0); LARGE UNSTAINED CELL # 0.1 K/mm3 (0.0-0.4); LARGE UNSTAINED CELL % 0.9 % (0.0-4.0); LYMPH # 2.1 K/mm3 (1.5-6.5); LYMPH % 13.7 % (24.0-44.0); MEAN CORPUSCULAR HEMOGLOBIN 33.6 pg (27.0-33.0); MEAN CORPUSCULAR HGB CONC 34.6 g/dl (32.0-36.5); MEAN CORPUSCULAR VOLUME 97.3 fl (80.0-96.0); MONO # 0.6 K/mm3 (0.0-0.8); MONO % 4.5 % (0.0-5.0); NEUTROPHILS # 11.2 K/mm3 (1.8-7.7); PLATELET COUNT, AUTOMATED 238 k/mm3 (150-450); WHITE BLOOD COUNT 14.2 K/mm3 (4.0-10.0)
[2017-04-27 06:41] LABS: INR 1.02
[2017-04-27 07:01] LABS: ALBUMIN 4.2 GM/DL (3.2-5.2); ALBUMIN/GLOBULIN RATIO 1.11 (1.00-1.93); ALKALINE PHOSPHATASE 116 U/L (45-117); ALT/SGPT 32 U/L (12-78); AMYLASE 40 U/L (25-115); ANION GAP 4 MEQ/L (8-16); AST/SGOT 20 U/L (15-37); BILIRUBIN,DIRECT 0.4 MG/DL (0.0-0.2); BILIRUBIN,TOTAL 2.1 MG/DL (0.2-1.0); BLOOD UREA NITROGEN 15 MG/DL (7-18); CALCIUM LEVEL 9.4 MG/DL (8.5-10.1); CARBON DIOXIDE LEVEL 29 MEQ/L (21-32); CHLORIDE LEVEL 107 MEQ/L (98-107); CREATININE FOR GFR 1.27 MG/DL (0.70-1.30); GLOMERULAR FILTRATION RATE > 60.0 (>60); GLUCOSE, FASTING 92 MG/DL (70-105); POTASSIUM SERUM 4.3 MEQ/L (3.5-5.1); SODIUM LEVEL 140 MEQ/L (136-145)
[2017-04-27 07:04] VITALS: BP 104/59
[2017-04-27] MEDS ORDERED: PROT1TAB2 PO (07:13)
--- NOTE | 2017-04-27 08:09 | REP ---
Clinical: Acute abdominal pain. Technique: Upright view of the chest with supine and upright views of the abdomen and pelvis. Findings: Frontal upright view of the chest demonstrates no acute cardiopulmonary process or free air below the diaphragm to suspect pneumoperitoneum. Supine and upright views of the abdomen and pelvis demonstrate nonspecific bowel gas pattern without obstruction or perforation. No organomegaly. No abnormal calcifications. Skeletal structures normal for age. Impression: Nonspecific bowel gas pattern. Signed by Rashad Ferguson MD 04/27/2017 08:01 A
== END 2017-04-27 07:25 | disposition home or self-care (01) ==
LOC: M ED 04:07
DX: R10.9 Unspecified abdominal pain (principal)
CPT/HCPCS: 74022; 80048; 80076; 81001; 82150; 83690; 85025; 85610; 86705; 86709; 86803; 87086; 87340; 96374; 96375; 99283; C9113; J1885; J2405